=== PATIENT | female | born 1975 | race Caucasian/White ===

== ENCOUNTER 2021-07-07 19:51 | Emergency (ER) | payer BC ==
[~2021-07-07] VITALS: Ht 172.7 cm; Wt 81.8 kg
[2021-07-07 20:49] LABS: BASOPHILS % (AUTO) 0.2 % (0-1); EOSINOPHILS % (AUTO) 0 % (0-6); HEMOGLOBIN 13.1 g/dl (12.0-16.0); LYMPHOCYTES # (AUTO) 0.6 X10'3 (1.1-4.8); LYMPHOCYTES % (AUTO) 6.4 % (21-51); MEAN CORPUSCULAR HEMOGLOBIN 29.5 PG (27.0-31.0); MEAN CORPUSCULAR HGB CONC 33.7 g/dL (33.0-36.5); MEAN CORPUSCULAR VOLUME 87.7 FL (78-98); MONOCYTES # (AUTO) 0.5 X10'3 (0-0.9); MONOCYTES % (AUTO) 5.4 % (2-12); NEUTROPHILS # (AUTO) 8.4 X10'3 (1.8-7.7); PLATELET COUNT 221 X10'3 (140-440); RED BLOOD COUNT 4.45 X10'6 (4.20-5.60); RED CELL DISTRIBUTION WIDTH 13.8 % (11.5-14.5); WHITE BLOOD COUNT 9.5 X10'3 (4.5-11.0)
[2021-07-07 21:02] LABS: ALANINE AMINOTRANSFERASE 34 U/L (12-78); ALBUMIN 3.6 G/DL (3.4-5.0); ALBUMIN/GLOBULIN RATIO 0.8 (1.1-1.5); ALKALINE PHOSPHATASE 86 IU/L (46-116); ANION GAP 11 (8-16); ASPARTATE AMINO TRANSFERASE 21 U/L (10-37); BILIRUBIN,TOTAL 0.4 MG/DL (0.1-1.0); BLOOD UREA NITROGEN 7 MG/DL (7-18); BUN/CREATININE RATIO 7.8 (6.6-38.0); CALCIUM 8.7 MG/DL (8.5-10.1); CHLORIDE 100 MMOL/L (99-107); GLUCOSE 124 MG/DL (70-104); POTASSIUM 3.9 MMOL/L (3.5-5.1); SODIUM 135 MMOL/L (135-145); TOTAL CARBON DIOXIDE 23.9 MMOL/L (24-32); eGFR 67 ML/MIN
--- NOTE | 2021-07-07 22:36 | NUR ---
VASCULAR PAGED AT [id number]
[2021-07-08] MEDS ORDERED: CEPH-585 PO (00:40)
[2021-07-08] MEDS ORDERED: SULF1TAB49 PO (00:40)
[2021-07-08] MEDS ORDERED: cephalexin 250mg capsule PO ONE (00:40)
[2021-07-08] MEDS ORDERED: sulfamethoxazole/trimethoprim DS (800/160mg) tablet PO ONE (00:40)
[2021-07-08 01:10] VITALS: BP 119/62
== END 2021-07-08 01:12 | disposition home or self-care (01) ==
LOC: ER 19:52
DX: L03.115 Cellulitis of right lower limb (principal); Z20.822 Contact with and (suspected) exposure to COVID-19; M79.89 Other specified soft tissue disorders; Z72.89 Other problems related to lifestyle; Z79.2 Long term (current) use of antibiotics
CPT/HCPCS: 36415; 80053; 84145; 85025; 87040; 87635; 93971; 99284; C9803

== ENCOUNTER 2021-07-28 16:01 | Inpatient (IN) | payer BC ==
[~2021-07-28] VITALS: Ht 172.7 cm; Wt 81.8 kg
[~2021-07-28 16:01] MED LIST: CEPH-585 PO
[2021-07-28] MEDS ORDERED: acetaminophen 325mg tablet PO STA (16:17)
[2021-07-28] MEDS ORDERED: vancomycin/NS 1 GM ADD-VANTAGE 250 ML IV ONE (16:20)
[2021-07-28] MEDS ORDERED: piperacillin/tazo 3.375gm/50ml 50 ML IV ONE (16:20)
[2021-07-28] MEDS ORDERED: normal saline 1000ML IV soln IV ONE (16:20)
[2021-07-28] MEDS ORDERED: [UNRECOGNIZED DRUG - CODE] PO (16:54)
[2021-07-28 17:01] LABS: BASOPHILS # (AUTO) 0.1 X10'3 (0-0.2); EOSINOPHILS % (AUTO) 0 % (0-6); HEMOGLOBIN 12.3 g/dl (12.0-16.0); LYMPHOCYTES # (AUTO) 0.5 X10'3 (1.1-4.8); LYMPHOCYTES % (AUTO) 3.6 % (21-51); MEAN CORPUSCULAR HEMOGLOBIN 29.1 PG (27.0-31.0); MEAN CORPUSCULAR HGB CONC 33.3 g/dL (33.0-36.5); MEAN CORPUSCULAR VOLUME 87.4 FL (78-98); MEAN PLATELET VOLUME 7.4 FL (7.4-10.4); MONOCYTES # (AUTO) 0.4 X10'3 (0-0.9); MONOCYTES % (AUTO) 2.9 % (2-12); NEUTROPHILS # (AUTO) 12.1 X10'3 (1.8-7.7); NEUTROPHILS % (AUTO) 92.5 % (42-75); PLATELET COUNT 289 X10'3 (140-440); RED BLOOD COUNT 4.23 X10'6 (4.20-5.60); RED CELL DISTRIBUTION WIDTH 14.1 % (11.5-14.5); WHITE BLOOD COUNT 13.1 X10'3 (4.5-11.0)
[2021-07-28 17:06] LABS: ALANINE AMINOTRANSFERASE 28 U/L (12-78); ALBUMIN 3.8 G/DL (3.4-5.0); ALBUMIN/GLOBULIN RATIO 0.9 (1.1-1.5); ALKALINE PHOSPHATASE 94 IU/L (46-116); ANION GAP 15 (8-16); ASPARTATE AMINO TRANSFERASE 19 U/L (10-37); BILIRUBIN,TOTAL 0.4 MG/DL (0.1-1.0); BLOOD UREA NITROGEN 9 MG/DL (7-18); BUN/CREATININE RATIO 8.5 (6.6-38.0); CALCIUM 9.2 MG/DL (8.5-10.1); CHLORIDE 100 MMOL/L (99-107); CREATININE 1.06 MG/DL (0.40-0.90); GLUCOSE 106 MG/DL (70-104); POTASSIUM 3.7 MMOL/L (3.5-5.1); SODIUM 135 MMOL/L (135-145); TOTAL CARBON DIOXIDE 20.4 MMOL/L (24-32); TOTAL PROTEIN 8.1 G/DL (6.4-8.2); eGFR 56 ML/MIN
--- NOTE | 2021-07-28 17:22 | NUR ---
Kole braga in ED - 07/28/21 at 2041 by BORIS Pt has an open area on R heal, ankle and R side of knee.
--- NOTE | 2021-07-28 17:23 | NUR ---
Pt has an open wound on R heel. Xerofom placed and wrapped with coban.
[2021-07-28 19:55] LABS: URINE HCG NEGATIVE (NEG)
[2021-07-28 20:00] LABS: CLARITY,URINE CLEAR (Clear); COLOR,URINE YELLOW (Yellow); GLUCOSE, URINE NEGATIVE (Neg); KETONES,URINE NEGATIVE (Neg); LEUKOCYTE ESTERASE ,URINE NEGATIVE (Neg); NITRITES, URINE NEGATIVE (Neg); OCCULT BLOOD,URINE SMALL (Neg); PH,URINE 5.5 (4.8-8.0); PROTEIN,URINE NEGATIVE (Neg); UROBILINOGEN,URINE 0.2 E.U/dL (0.2-1.0)
[2021-07-28 20:01] LABS: UA COLLECTION TYPE NON-SPECIFIED
[2021-07-28 20:08] LABS: MUCUS STRANDS MODERATE /LPF (Neg); SQUAMOUS EPITHELIAL CELL,UR MODERATE /LPF (FEW)
[2021-07-28 20:09] LABS: BACTERIA,URINE FEW /HPF (Neg)
[2021-07-28 20:10] LABS: WBC,URINE 0-4 /HPF (0-4)
[2021-07-28 20:11] LABS: WBC CLUMPS,URINE FEW /HPF (NEGATIVE)
[2021-07-28] MEDS ORDERED: temazepam 15mg capsule PO PRN (21:00)
[2021-07-28] MEDS ORDERED: ibuprofen 200mg tablet PO ONE (21:45)
[2021-07-28] MEDS: normal saline 1000ml 1,000 ML IV SCH (23:54)
[2021-07-29] MEDS ORDERED: diphenhydrAMINE 25mg capsule PO PRN
[2021-07-29] MEDS ORDERED: ondansetron 4mg rapidly disintigrating tab PO PRN
[2021-07-29] MEDS ORDERED: HYDROcodone/acetaminophen 10/325mg tab PO PRN
[2021-07-29] MEDS ORDERED: diphenhydrAMINE 50 mg/ml inj IV PRN
[2021-07-29] MEDS ORDERED: bisacodyl 10mg suppository rectal RC PRN
[2021-07-29] MEDS ORDERED: acetaminophen 325mg tablet PO PRN ×2
[2021-07-29] MEDS ORDERED: HYDROmorphone inj. 0.5 MG/0.5 ML DISP.SYRIN IV PRN
[2021-07-29] MEDS ORDERED: HYDROmorphone/PF 0.2 MG/ML SYRINGE IV PRN
[2021-07-29] MEDS ORDERED: morphine 2 MG/ML inj. syringe IV PRN ×2
[2021-07-29] MEDS ORDERED: magnesium hydroxide 30ml (MOM) UD suspension PO PRN
[2021-07-29] MEDS ORDERED: mag hydrox/Alum hydrox/simeth 30ml oral suspension PO PRN
[2021-07-29] MEDS ORDERED: ondansetron/PF 4mg/2ml inj IV PRN
[2021-07-29] MEDS: piperacillin/tazo 3.375gm/50ml 50 ML IV SCH ×3 (00:38→17:30)
[2021-07-29 01:40] LABS: BASOPHILS % (AUTO) 0.2 % (0-1); EOSINOPHILS % (AUTO) 0 % (0-6); HEMATOCRIT 29.3 % (35.0-45.0); HEMOGLOBIN 10.1 g/dl (12.0-16.0); LYMPHOCYTES # (AUTO) 0.5 X10'3 (1.1-4.8); LYMPHOCYTES % (AUTO) 5.1 % (21-51); MEAN CORPUSCULAR HEMOGLOBIN 29.8 PG (27.0-31.0); MEAN CORPUSCULAR HGB CONC 34.4 g/dL (33.0-36.5); MEAN CORPUSCULAR VOLUME 86.7 FL (78-98); MEAN PLATELET VOLUME 6.7 FL (7.4-10.4); MONOCYTES # (AUTO) 0.2 X10'3 (0-0.9); MONOCYTES % (AUTO) 2.3 % (2-12); NEUTROPHILS # (AUTO) 9.9 X10'3 (1.8-7.7); NEUTROPHILS % (AUTO) 92.4 % (42-75); PLATELET COUNT 195 X10'3 (140-440); RED BLOOD COUNT 3.38 X10'6 (4.20-5.60); RED CELL DISTRIBUTION WIDTH 14.2 % (11.5-14.5); WHITE BLOOD COUNT 10.7 X10'3 (4.5-11.0)
--- NOTE | 2021-07-29 01:40 | NUR ---
Received report from CASTINGS TRIMMERJACK Hollis. Patient to follow shortly.
[2021-07-29 01:52] LABS: PARTIAL THROMBOPLASTIN TIME 26 SECONDS (22-32)
--- NOTE | 2021-07-29 01:55 | NUR ---
Patient arrived to floor from ER via w/c. A&O and assisted into bed. Patient in no distress at this time. 2 RN skin check completed and VS obtained.
[2021-07-29 01:57] LABS: HEMOGLOBIN A1C 5.5 % (4.5-6.2)
[2021-07-29 02:00] VITALS: BP 128/47
[2021-07-29 02:00] LABS: ALANINE AMINOTRANSFERASE 22 U/L (12-78); ALBUMIN 2.7 G/DL (3.4-5.0); ALBUMIN/GLOBULIN RATIO 0.8 (1.1-1.5); ALKALINE PHOSPHATASE 63 IU/L (46-116); ANION GAP 12 (8-16); ASPARTATE AMINO TRANSFERASE 11 U/L (10-37); BILIRUBIN,TOTAL 0.4 MG/DL (0.1-1.0); BLOOD UREA NITROGEN 7 MG/DL (7-18); BUN/CREATININE RATIO 8.4 (6.6-38.0); CALCIUM 7.5 MG/DL (8.5-10.1); CHLORIDE 105 MMOL/L (99-107); CHOL/HDL RATIO 2.5 (0.00-4.99); CHOLESTEROL 135 MG/DL (0-200); CREATININE 0.83 MG/DL (0.40-0.90); GLUCOSE 117 MG/DL (70-104); HDL CHOLESTEROL 54 MG/DL (35-60); LDL CHOLESTEROL 74 MG/DL (50-100); MAGNESIUM 1.6 MG/DL (1.5-2.4); PHOSPHORUS 3.9 MG/DL (2.3-4.5); POTASSIUM 3.4 MMOL/L (3.5-5.1); SODIUM 139 MMOL/L (135-145); TOTAL CARBON DIOXIDE 21.9 MMOL/L (24-32); TOTAL PROTEIN 6.1 G/DL (6.4-8.2); TRIGLYCERIDES 41 MG/DL (20-135); eGFR 74 ML/MIN
[2021-07-29 02:08] LABS: URINE AMPHETAMINE SCREEN NEGATIVE (Neg); URINE BARBITUATE SCREEN NEGATIVE (Neg); URINE BENZODIAZEPINES SCREEN NEGATIVE (Neg); URINE CANNABINOID SCREEN NEGATIVE (Neg); URINE COCAINE SCREEN NEGATIVE (Neg); URINE METHADONE SCREEN NEGATIVE (Neg); URINE OPIATE SCREEN NEGATIVE (Neg); URINE PHENCYCLIDINE SCREEN NEGATIVE (Neg)
--- NOTE | 2021-07-29 02:10 | NUR ---
R foot dressing removed and pictures taken of the wound, and also the cellulitis rash to leg which was also outlined with permanent sheila rfor assessment purposes. Addendum: 07/29/21 at 0555 by Jacquelyn Harrington RN Re-dressed wound to heel using xeroform,4x4 guaze, kerlix and genny wrap.
[2021-07-29] MEDS: normal saline 1000ml 1,000 ML IV SCH ×5 (06:20→19:40)
--- NOTE | 2021-07-29 06:38 | NUR ---
Problems reprioritized. Patient report given, questions answered & plan of care reviewed with Delmi SANTIAGO.
[2021-07-29 07:00] VITALS: BP_SYST 113; BP_SYST 141; BP_DIAS 58; BP_DIAS 60
[2021-07-29] MEDS ORDERED: potassium Cl 20 mEq SR tablet PO PRN ×2 (07:00)
[2021-07-29] MEDS ORDERED: magnesium Cl slow-release 64mg tablet PO PRN (07:00)
[2021-07-29] MEDS ORDERED: magnesium 2GM in 50ml NS 50 ML IV PRN (07:00)
[2021-07-29] MEDS ORDERED: potassium CL 10mEq/100ml bag 100 ML IV PRN (07:00)
[2021-07-29] MEDS ORDERED: magnesium 4gm in 100ml NS 100 ML IV PRN (07:00)
[2021-07-29] MEDS: K and/or MAG REPLACEMENT MC SCH ×2 (08:00→20:00)
[2021-07-29] MEDS ORDERED: vancomycin/NS 1 GM ADD-VANTAGE 250 ML IV SCH (08:00)
[2021-07-29 08:10] LABS: MAGNESIUM 1.9 MG/DL (1.5-2.4)
[2021-07-29] MEDS: heparin, porcine 5000 units/ml vial SQ SCH ×2 (08:50→20:05)
[2021-07-29] MEDS: pantoprazole 40mg Tablet.DR PO SCH ×2 (08:50→09:00)
[2021-07-29] MEDS: docusate sod 100mg capsule PO SCH ×2 (08:52→20:04)
[2021-07-29 09:10] LABS: POTASSIUM 3.6 MMOL/L (3.5-5.1)
--- NOTE | 2021-07-29 10:24 | NUR ---
message to dr berger "pt prefers no to take [place] and is requesting aleve or motrin for 4-6 pain [address]"
--- NOTE | 2021-07-29 10:51 | NUR ---
mri questionnaire faxed [phone]
[2021-07-29 11:00] VITALS: BP 132/77
[2021-07-29] MEDS: VANCOmycin 1250MG/NS 250ml Bag 250 ML IV SCH ×2 (13:43→20:15)
--- NOTE | 2021-07-29 13:47 | NUR ---
Initial: Pt admit for sepsis, right leg/foot cellulitis, and posttraumatic right heel open infected wound. Pt seen by wound care, per note pt has undergone ORIF of tibia with fractures of the tibia and fibula. Pt on a regular diet, pending documentation of PO intake. [facility] 07/28, receiving routine bowel care. Will continue to follow closely and make recommendations as appropriate pending trends in PO intake. Recommendations: 1) Continue regular diet 2) Monitor need for ONS/additional protein 3) Routine bowel care 4) Scaled weight this admit; weekly scaled weights thereafter Addendum: 07/29/21 at [address] Amended: Links added.
[2021-07-29] MEDS: HYDROcodone/acetaminophen 5mg/325mg tablet PO PRN ×2 (13:51→22:52)
[2021-07-29] MEDS ORDERED: GADOTERATE MEGLUMINE 7.5 MMOL/15 ML VIAL IV ONE (14:08)
[2021-07-29 19:50] VITALS: BP 109/68
[2021-07-30 00:04] VITALS: BP 126/60
[2021-07-30] MEDS: piperacillin/tazo 3.375gm/50ml 50 ML IV SCH ×2 (00:04→09:45)
[2021-07-30] MEDS: normal saline 1000ml 1,000 ML IV SCH ×5 (02:20→16:28)
--- NOTE | 2021-07-30 03:55 | NUR ---
Patient in room [facility]. I have received report from Delmi SANTIAGO and had the opportunity to ask questions and assume patient care.
[2021-07-30 06:12] LABS: BASOPHILS % (AUTO) 0.4 % (0-1); EOSINOPHILS % (AUTO) 0.5 % (0-6); HEMATOCRIT 27.9 % (35.0-45.0); HEMOGLOBIN 9.5 g/dl (12.0-16.0); LYMPHOCYTES # (AUTO) 0.9 X10'3 (1.1-4.8); MEAN CORPUSCULAR HGB CONC 34.2 g/dL (33.0-36.5); MEAN CORPUSCULAR VOLUME 87.7 FL (78-98); MEAN PLATELET VOLUME 7.4 FL (7.4-10.4); MONOCYTES # (AUTO) 0.5 X10'3 (0-0.9); MONOCYTES % (AUTO) 7.5 % (2-12); NEUTROPHILS # (AUTO) 4.8 X10'3 (1.8-7.7); NEUTROPHILS % (AUTO) 76.6 % (42-75); PLATELET COUNT 179 X10'3 (140-440); RED BLOOD COUNT 3.18 X10'6 (4.20-5.60); RED CELL DISTRIBUTION WIDTH 14.1 % (11.5-14.5); WHITE BLOOD COUNT 6.3 X10'3 (4.5-11.0)
--- NOTE | 2021-07-30 06:29 | NUR ---
Student documentation: physical assessment, vitals, hourly rounding I have reviewed and agree with all interventions, assessments performed and documented by Yani GRISSOM.
--- NOTE | 2021-07-30 06:30 | NUR ---
Problems reprioritized. Patient report given, questions answered & plan of care reviewed with Delmi SANTIAGO.
[2021-07-30 06:32] LABS: ALANINE AMINOTRANSFERASE 19 U/L (12-78); ALBUMIN 2.6 G/DL (3.4-5.0); ALBUMIN/GLOBULIN RATIO 0.7 (1.1-1.5); ALKALINE PHOSPHATASE 61 IU/L (46-116); ANION GAP 6 (8-16); ASPARTATE AMINO TRANSFERASE 12 U/L (10-37); BILIRUBIN,TOTAL 0.3 MG/DL (0.1-1.0); BLOOD UREA NITROGEN 5 MG/DL (7-18); BUN/CREATININE RATIO 6.6 (6.6-38.0); CALCIUM 8.4 MG/DL (8.5-10.1); CHLORIDE 107 MMOL/L (99-107); CREATININE 0.76 MG/DL (0.40-0.90); GLUCOSE 111 MG/DL (70-104); SODIUM 138 MMOL/L (135-145); TOTAL CARBON DIOXIDE 24.6 MMOL/L (24-32); TOTAL PROTEIN 6.2 G/DL (6.4-8.2); eGFR 82 ML/MIN
[2021-07-30 07:00] VITALS: BP 123/73
[2021-07-30] MEDS: K and/or MAG REPLACEMENT MC SCH ×2 (08:00→20:00)
[2021-07-30] MEDS: VANCOmycin 1250MG/NS 250ml Bag 250 ML IV SCH (08:10)
[2021-07-30] MEDS: docusate sod 100mg capsule PO SCH ×2 (09:45→19:58)
[2021-07-30] MEDS: heparin, porcine 5000 units/ml vial SQ SCH ×2 (09:46→19:57)
[2021-07-30 11:00] VITALS: BP 130/61
--- NOTE | 2021-07-30 12:01 | NUR ---
dressing to be done every 3rd day per WC rec. last done 07/29 Addendum: 07/30/21 at 1203 by Delmi Pelayo RN Amended: Links added.
[2021-07-30] MEDS: linezolid 600mg tablet PO SCH ×2 (12:40→19:58)
--- NOTE | 2021-07-30 15:05 | NUR ---
WOUND INFECTION EDUCATION PROVIDED BY WOUND CARE 1. Patient instructed to call their primary doctor, or go the ED immediately if any of the following symptoms occur: * Increased pain in wound * Increase in drainage from the wound * Redness in the skin surrounding the wound * Warmth in the skin surrounding the wound * Bleeding from the wound * Temperature of 101 or greater 2. If any of these occur while in the hospital tell a nurse immediately. Addendum: 07/30/21 at 1505 by Dwight Nix RN Amended: Links added.
--- NOTE | 2021-07-30 15:08 | NUR ---
WOUND INFECTION EDUCATION PROVIDED BY WOUND CARE 1. Patient instructed to call their primary doctor, or go the ED immediately if any of the following symptoms occur: * Increased pain in wound * Increase in drainage from the wound * Redness in the skin surrounding the wound * Warmth in the skin surrounding the wound * Bleeding from the wound * Temperature of 101 or greater 2. If any of these occur while in the hospital tell a nurse immediately. Addendum: 07/30/21 at 1509 by Dwight Nix RN Amended: Links added.
--- NOTE | 2021-07-30 18:23 | NUR ---
Patient in room [facility]. I have received report from Delmi SANTIAGO and had the opportunity to ask questions and assume patient care.
[2021-07-30 19:02] VITALS: BP 155/87
[2021-07-30] MEDS ORDERED: VANCOMYCIN LEVEL IV ONE (19:30)
[2021-07-30] MEDS: lactobacillus rhamnosus 10,000 MMU CELLS/CAPSULE PO SCH (19:58)
[2021-07-31] VITALS: BP 145/80
[2021-07-31] MEDS: normal saline 1000ml 1,000 ML IV SCH ×2 (05:58→12:00)
[2021-07-31 06:14] LABS: BASOPHILS % (AUTO) 0.6 % (0-1); EOSINOPHILS # (AUTO) 0.1 X10'3 (0-0.9); EOSINOPHILS % (AUTO) 1.4 % (0-6); HEMATOCRIT 31.7 % (35.0-45.0); HEMOGLOBIN 10.5 g/dl (12.0-16.0); LYMPHOCYTES # (AUTO) 0.9 X10'3 (1.1-4.8); LYMPHOCYTES % (AUTO) 16.7 % (21-51); MEAN CORPUSCULAR HEMOGLOBIN 29.6 PG (27.0-31.0); MEAN CORPUSCULAR HGB CONC 33.2 g/dL (33.0-36.5); MEAN CORPUSCULAR VOLUME 89.1 FL (78-98); MEAN PLATELET VOLUME 7.7 FL (7.4-10.4); MONOCYTES # (AUTO) 0.5 X10'3 (0-0.9); MONOCYTES % (AUTO) 10.1 % (2-12); NEUTROPHILS # (AUTO) 3.9 X10'3 (1.8-7.7); NEUTROPHILS % (AUTO) 71.2 % (42-75); PLATELET COUNT 209 X10'3 (140-440); RED BLOOD COUNT 3.56 X10'6 (4.20-5.60); RED CELL DISTRIBUTION WIDTH 13.9 % (11.5-14.5); WHITE BLOOD COUNT 5.4 X10'3 (4.5-11.0)
[2021-07-31 06:29] LABS: ALANINE AMINOTRANSFERASE 22 U/L (12-78); ALBUMIN 2.7 G/DL (3.4-5.0); ALBUMIN/GLOBULIN RATIO 0.7 (1.1-1.5); ALKALINE PHOSPHATASE 71 IU/L (46-116); ANION GAP 6 (8-16); ASPARTATE AMINO TRANSFERASE 16 U/L (10-37); BILIRUBIN,TOTAL 0.2 MG/DL (0.1-1.0); BLOOD UREA NITROGEN 5 MG/DL (7-18); BUN/CREATININE RATIO 6.3 (6.6-38.0); CALCIUM 8.9 MG/DL (8.5-10.1); CHLORIDE 106 MMOL/L (99-107); GLUCOSE 93 MG/DL (70-104); POTASSIUM 3.9 MMOL/L (3.5-5.1); SODIUM 139 MMOL/L (135-145); TOTAL CARBON DIOXIDE 27.1 MMOL/L (24-32); TOTAL PROTEIN 6.7 G/DL (6.4-8.2); eGFR 77 ML/MIN
--- NOTE | 2021-07-31 06:49 | NUR ---
Problems reprioritized. Patient report given, questions answered & plan of care reviewed with Delmi SANTIAGO.
[2021-07-31 07:00] VITALS: BP 132/79
[2021-07-31] MEDS: K and/or MAG REPLACEMENT MC SCH (07:18)
[2021-07-31] MEDS: pantoprazole 40mg Tablet.DR PO SCH (07:30)
[2021-07-31] MEDS: lactobacillus rhamnosus 10,000 MMU CELLS/CAPSULE PO SCH (08:45)
[2021-07-31] MEDS: linezolid 600mg tablet PO SCH (08:45)
[2021-07-31] MEDS: heparin, porcine 5000 units/ml vial SQ SCH (08:45)
[2021-07-31] MEDS: docusate sod 100mg capsule PO SCH (08:45)
[2021-07-31 10:00] VITALS: BP 125/81
[2021-07-31] MEDS ORDERED: LINE600T11 PO (10:14)
--- NOTE | 2021-07-31 10:19 | NUR ---
message to dr berger "PAGER ID: [phone] MESSAGE: infectious disease cleared pt for d/c home with PO zyvox, to f/u with wound care clinic. will you be placing orders for d/c home [address] ~ Delmi rn [phone]"
--- NOTE | 2021-07-31 11:09 | NUR ---
wound care ordered to be done q3d per wound care consult. last done 07/30 Addendum: 07/31/21 at 1110 by Delmi Pelayo RN Amended: Links added.
--- NOTE | 2021-07-31 13:08 | NUR ---
Noted pt receiving Zyvox. Pending discharge per EMR. Written high protein and low tyramine nutrition therapy educations with ONS coupons and RD contact information placed in patient's chart. Pt eating well on regular diet, documented with mostly 100% PO intake meeting estimated nutrient needs. No nutrition intervention implemented at this time. Will continue to follow. Recommendations: 1) Continue regular diet 2) Monitor need for additional protein for satiety 3) Routine bowel care 4) Scaled weight this admit; weekly scaled weights thereafter Addendum: 07/31/21 at [address] Amended: Links added.
== END 2021-07-31 16:30 | disposition home or self-care (01) | DRG 862 ==
LOC: ER 16:02 → ED HOLD 07-29 00:03 → SUR 3N 07-29 01:55
PROVIDERS: ADMIT Family Medicine; ATTEND Internal Medicine
DX: T81.49XA Infection following a procedure, other surgical site, initial encounter (principal); A41.9 Sepsis, unspecified organism; L03.115 Cellulitis of right lower limb; N17.9 Acute kidney failure, unspecified; E87.2 Acidosis; E86.1 Hypovolemia; E87.6 Hypokalemia; I10 Essential (primary) hypertension; K21.9 Gastro-esophageal reflux disease without esophagitis; D64.9 Anemia, unspecified; Y83.1 Surgical operation with implant of artificial internal device as the cause of abnormal reaction of the patient, or of later complication, without mention of misadventure at the time of the procedure; Y92.89 Other specified places as the place of occurrence of the external cause
CPT/HCPCS: 36415; 73610; 73630; 73720; 80053; 80061; 80305; 81001; 81025; 83036; 83605; 83735; 83880; 84100; 84132; 84145; 85025; 85610; 85730; 87040; 87081; 99285; A9575; G0378; J1644; J2543; J3370; J7030